=== PATIENT | male | born 1935 | race Caucasian/White ===

== ENCOUNTER → 2016-05-23 | Outpatient (CLI) | payer MEDICARE, OTHER ==
[~2016-05-23] MED LIST: ASPIRIN LO-DOSE81 MG PO; CALCIUM 600 +1 EAC6 PO; CASODEX50 M1 PO; FLAX SEED OIL1000 MG PO; GLUCOSAMINE CH1 EAC1 PO; LUTEIN20 MG PO; NORCO 5-325 MG1 TAB PO; VITAMIN E400 UNI2 PO
== END | disposition disaster alternative care site (69) ==
LOC: GRAD 09:35
DX: C61 Malignant neoplasm of prostate (principal)
CPT/HCPCS: A9503